=== PATIENT | male | born 1955 | race Native Hawaiian/Other Pacific Islander ===

== ENCOUNTER 2017-12-14 19:45 | Emergency (ER) | payer OTHER ==
[~2017-12-14] VITALS: Ht 172.7 cm; Wt 59.9 kg
[2017-12-14 20:30] VITALS: BP 163/75; TEMP 98.2
== END 2017-12-14 20:30 | disposition home or self-care (01) ==
LOC: ED 19:45
DX: J44.9 Chronic obstructive pulmonary disease, unspecified (principal); K74.69 Other cirrhosis of liver
CPT/HCPCS: 99281

== ENCOUNTER 2017-12-16 17:45 | Outpatient (CLI) | payer OTHER | END 2017-12-16 17:48 | disposition short-term general hospital (02) | LOC: AMB 17:45 | DX: R07.89 Other chest pain (principal) | CPT/HCPCS: A0425; A0426 ==

== ENCOUNTER 2017-12-16 17:49 | Emergency (ER) | payer OTHER ==
[~2017-12-16] VITALS: Ht 172.7 cm; Wt 59.0 kg
[2017-12-16 20:29] LABS: PLATELET COUNT 296 K/uL (142-355)
[2017-12-16 20:39] LABS: POTASSIUM 3.1 mmol/L (3.6-5.2); SODIUM 137 mmol/L (136-145)
[2017-12-16 22:12] VITALS: BP 157/80; TEMP 98
== END 2017-12-16 22:40 | disposition home or self-care (01) ==
LOC: ED 17:49
PROVIDERS: Emergency Medicine
DX: J44.9 Chronic obstructive pulmonary disease, unspecified (principal)
CPT/HCPCS: 80053; 82550; 82553; 84484; 85027; 93005; 96372; 99283; J2930

== ENCOUNTER 2017-12-18 17:03 | Outpatient (CLI) | payer OTHER | END 2017-12-18 17:27 | disposition short-term general hospital (02) | LOC: AMB 17:03 | DX: J44.1 Chronic obstructive pulmonary disease with (acute) exacerbation (principal) | CPT/HCPCS: A0425; A0427 ==

== ENCOUNTER 2017-12-18 17:32 | Emergency (ER) | payer OTHER ==
[~2017-12-18] VITALS: Ht 172.7 cm; Wt 59.0 kg
[2017-12-18 18:28] LABS: PLATELET COUNT 342 K/uL (142-355)
[2017-12-18 18:34] LABS: POTASSIUM 3.9 mmol/L (3.6-5.2)
[2017-12-18 19:44] VITALS: BP 136/68; TEMP 98.5
== END 2017-12-18 19:55 | disposition home or self-care (01) ==
LOC: ED 17:44
PROVIDERS: Family Medicine
DX: J44.9 Chronic obstructive pulmonary disease, unspecified (principal)
CPT/HCPCS: 80053; 85027; 94664; 96374; 99284; J2930